=== PATIENT | male | born 1965 | race Caucasian/White ===

== ENCOUNTER 2016-05-31 01:02 | Emergency (ER) | payer OTHER ==
[2016-05-31 01:43] LABS: BILIRUBIN NEGATIVE (NEGATIVE); BLOOD NEGATIVE Ery/uL (NEGATIVE); CLARITY CLEAR (CLEAR); COLOR YELLOW (YELLOW); GLUCOSE (U) NORMAL (NORMAL); KETONE (U) NEGATIVE (NEGATIVE); LEUKOCYTES NEGATIVE Leu/uL (NEGATIVE); NITRITE NEGATIVE (NEGATIVE); PROTEIN TRACE (LOW) mg/dL (NEGATIVE); UROBILINOGEN 0.2 mg/dL (0.2-1.0)
[2016-05-31 01:49] LABS: BACTERIA TRACE; MUCOUS TRACE; SQUAMOUS EPITHELIAL CELLS RARE; URINARY RBC RARE
== END 2016-05-31 03:45 | disposition home or self-care (01) ==
LOC: FER 01:02
PROVIDERS: Emergency Medicine
DX: N20.0 Calculus of kidney (principal); R82.90 Unspecified abnormal findings in urine
CPT/HCPCS: 81001; 87088; J1885

== ENCOUNTER 2020-05-04 07:42 | Emergency (ER) | payer OTHER ==
[2020-05-04] MEDS ORDERED: MOBIC15 MG PO (09:25)
[2020-05-04] MEDS ORDERED: VOLTAREN100 GM TOP (09:25)
== END 2020-05-04 09:35 | disposition home or self-care (01) ==
LOC: FER 07:42
DX: M17.11 Unilateral primary osteoarthritis, right knee (principal); M76.61 Achilles tendinitis, right leg
CPT/HCPCS: 73560; 73630